=== PATIENT | male | born 1940 | race Caucasian/White ===

== ENCOUNTER 2019-01-23 07:48 | Outpatient (CLI) | payer MEDICARE ==
[2019-01-23 12:00] VITALS: BMI 24.4
[2019-01-23 13:01] LABS: Hemoglobin 15.6 g/dL (14.0-18.0); Mean Corpuscular HGB CONC 34.6 g/dL (32.0-36.0); Mean Corpuscular Hemoglobin 34.1 pg (27.0-31.0); Mean Corpuscular Volume 98.4 fL (78.0-98.0); Mean Platelet Volume 7.7 fL (7.4-10.4); Platelet Count 164 thou/uL (130-400); RBC Distribution Width 12.2 % (11.5-14.5); Red Blood Cell (RBC) Count 4.57 mill/uL (4.70-6.10); White Blood Cell (WBC) Count 7.7 thou/uL (4.8-10.8)
[2019-01-23 13:09] LABS: Bacteria/HPF None Seen HPF (None Seen); Bilirubin Negative (Negative); Blood, Urine Trace (Negative); Clarity Clear (Clear); Glucose, Urine (Dipstick) Normal (Negative); Leukocyte Negative Leu/uL (Negative); Nitrite Negative (Negative); PTT 31.6 SEC (22.9-36.1); Protein, Urine (Dipstick) Negative (Neg-Trace); Prothrombin Time 13.4 SEC (12.0-14.7); RBC/HPF 0-3 HPF (0-3); Squamous Epithelial None Seen HPF (0-3); Urobilinogen Normal mg/dL (Less than 2); WBC/HPF 0-3 HPF (0-3)
[2019-01-23 13:28] LABS: Anion Gap 14 mmol/L (10-20); BUN (Urea Nitrogen) 26 mg/dL (8.4-25.7); Calc. Creatinine Clearance 53 mL/min (70-130); Calcium 9.3 mg/dL (7.8-10.44); Carbon Dioxide 25 mmol/L (23-31); Chloride 104 mmol/L (98-107); Estimated GFR-MDRD 51; Glucose 97 mg/dL (83-110); Potassium 4.7 mmol/L (3.5-5.1); Sodium 138 mmol/L (136-145)
== END 2019-01-23 07:49 | disposition home or self-care (01) ==
LOC: LABBT 07:48
PROVIDERS: ATTEND Urology
DX: Z01.812 Encounter for preprocedural laboratory examination (principal); N52.01 Erectile dysfunction due to arterial insufficiency
CPT/HCPCS: 80048; 81001; 85027; 85610; 85730; 87081; 87086

== ENCOUNTER 2021-01-14 14:28 | Inpatient (IN) | payer MEDICARE ==
[2021-01-14 15:29] VITALS: BMI 25.2
[2021-01-14] MEDS ORDERED: HYDROcodone/Acetaminophen 5/325 mg Tablet PO PRN ×2 (16:23)
[2021-01-14] MEDS ORDERED: Clindamycin/D5W 900 MG in Premix Bag 1 BAG IVPB SCH (17:45)
[2021-01-14] MEDS ORDERED: tiZANidine HCl 4 MG TAB PO PRN (18:28)
[2021-01-14] MEDS ORDERED: Ondansetron PF 4 MG/2 ML Vial IVP PRN (18:29)
[2021-01-14] MEDS ORDERED: Dextrose 5% in Water 1,000 ML IV PRN (19:17)
[2021-01-14] MEDS ORDERED: hydrALAZINE 20 MG/ML VIAL SLOW IVP PRN (19:17)
[2021-01-14] MEDS ORDERED: traMADol HCl 50 MG TAB PO PRN (19:17)
[2021-01-14] MEDS ORDERED: Ondansetron ODT 4 MG TAB PO PRN (19:17)
[2021-01-14] MEDS ORDERED: Dextrose 50% Abboject 50 ML SYRINGE SLOW IVP PRN (19:17)
[2021-01-14] MEDS: Cyclobenzaprine 10 MG TAB PO PRN (19:43)
[2021-01-14] MEDS: Acetaminophen 325 MG TAB PO SCH (20:51)
[2021-01-14] MEDS: Ibuprofen 800 MG TAB PO SCH (20:52)
[2021-01-14] MEDS: Famotidine 20 MG TAB PO SCH (20:53)
[2021-01-14] MEDS: Finasteride 5 MG TAB PO SCH (20:53)
[2021-01-14] MEDS: Morphine 4 MG/ML VIAL SLOW IVP PRN (22:04)
[2021-01-14] MEDS: Melatonin 3 MG TAB PO SCH (22:06)
[2021-01-14] MEDS: Atorvastatin Calcium 10 MG TAB PO SCH (22:07)
[2021-01-14] MEDS: Pyridostigmine Bromide IR 60 MG TAB PO SCH (22:07)
[2021-01-14] MEDS: Carvedilol 6.25 MG TAB PO SCH (22:08)
[2021-01-14 22:41] LABS: SARS-CoV-2 PCR by NAA Not Detected (NotDetected)
[2021-01-14] MEDS ORDERED: Sodium Chloride 0.9% 1,000 ML IV SCH (23:55)
[2021-01-15] MEDS: Acetaminophen 325 MG TAB PO SCH ×4 (02:06→20:36)
[2021-01-15] MEDS: Ibuprofen 800 MG TAB PO SCH ×3 (04:44→20:37)
[2021-01-15 06:12] LABS: #Eosinphils 0.2 thou/uL (0.0-0.7); #Lymphocytes 1.1 thou/uL (1.20-3.40); #Monocytes 0.8 thou/uL (0.11-0.59); #Neutrophils 4.4 thou/uL (1.40-6.50); %Basophils 0.7 % (0.0-1.0); %Eosinophils 3.5 % (0.0-10.0); %Lymphocytes 16.3 % (21.0-51.0); %Monocytes 12.2 % (0.0-10.0); %Neutrophils 67.4 % (42.0-75.0); Hemoglobin 14.6 g/dL (14.0-18.0); Mean Corpuscular HGB CONC 34.6 g/dL (32.0-36.0); Mean Corpuscular Hemoglobin 33.4 pg (27.0-31.0); Mean Corpuscular Volume 96.5 fL (78.0-98.0); Mean Platelet Volume 7.8 fL (7.4-10.4); Platelet Count 114 thou/uL (130-400); RBC Distribution Width 12.2 % (11.5-14.5); Red Blood Cell (RBC) Count 4.38 mill/uL (4.70-6.10); White Blood Cell (WBC) Count 6.5 thou/uL (4.8-10.8)
[2021-01-15 06:26] LABS: Anion Gap 11 mmol/L (10-20); BUN (Urea Nitrogen) 28 mg/dL (8.4-25.7); Calc. Creatinine Clearance 52 mL/min (70-130); Calcium 8.3 mg/dL (7.8-10.44); Carbon Dioxide 20 mmol/L (23-31); Chloride 111 mmol/L (98-107); Glucose 114 mg/dL (83-110); Potassium 4.5 mmol/L (3.5-5.1); Sodium 137 mmol/L (136-145)
[2021-01-15 06:32] LABS: Phosphorus 3.9 mg/dL (2.3-4.7)
[2021-01-15] MEDS: Carvedilol 6.25 MG TAB PO SCH ×2 (08:02→20:39)
[2021-01-15] MEDS: Morphine 4 MG/ML VIAL SLOW IVP PRN ×2 (08:02→16:53)
[2021-01-15] MEDS ORDERED: Clindamycin/D5W 900 mg/50 ml Premix Bag ONE (09:35)
[2021-01-15] MEDS: Amlodipine 10 MG TAB PO SCH (10:01)
[2021-01-15] MEDS: DULoxetine 30 MG CAP PO SCH (10:01)
[2021-01-15] MEDS: Topiramate 25 MG TAB PO SCH ×2 (10:02→20:43)
[2021-01-15] MEDS: Lisinopril 20 MG TAB PO SCH (10:02)
[2021-01-15] MEDS: Pyridostigmine Bromide IR 60 MG TAB PO SCH ×3 (10:02→20:42)
[2021-01-15] MEDS: Famotidine 20 MG TAB PO SCH ×2 (10:02→20:40)
[2021-01-15] MEDS ORDERED: Fentanyl 100 MCG/2 ML VIAL ONE ×3 (10:09→12:00)
[2021-01-15] MEDS ORDERED: Glycopyrrolate 0.2 MG/ML 5 ML SYRINGE ONE (10:10)
[2021-01-15] MEDS ORDERED: PROPOFOL 200 MG/20 ML VIAL ONE (10:10)
[2021-01-15] MEDS ORDERED: Dexamethasone 20 MG/5 ML VIAL ONE (10:10)
[2021-01-15] MEDS ORDERED: Ondansetron PF 4 MG/2 ML Vial ONE (10:10)
[2021-01-15] MEDS ORDERED: PHENYLEPHRINE-NS 100 MCG/ML 10 ML SYRINGE ONE (10:10)
[2021-01-15] MEDS ORDERED: Lidocaine 1% PF 5 ML VIAL ONE (10:10)
[2021-01-15] MEDS ORDERED: Rocuronium Bromide 10 MG/ML (10ML VIAL) ONE (10:10)
[2021-01-15] MEDS ORDERED: ePHEDrine 50 MG/ML VIAL ONE (10:10)
[2021-01-15] MEDS ORDERED: methylPREDNISolone Sod Succ/PF 125 MG/2 ML VIAL ONE (10:59)
[2021-01-15] MEDS ORDERED: Hydrocortisone Sod Succ/PF 100 mg/2 ml Vial ONE (11:08)
[2021-01-15] MEDS ORDERED: SUGAMMADEX SODIUM 200 MG/2 ML VIAL ONE (11:11)
[2021-01-15] MEDS ORDERED: HYDROmorphone 2 MG/ML VIAL SLOW IVP PRN (11:48)
[2021-01-15] MEDS ORDERED: Ondansetron HCl/PF 4 MG/2 ML Vial IVP PRN (11:48)
[2021-01-15] MEDS ORDERED: Promethazine HCl 25 MG/ML VIAL IM PRN (11:48)
[2021-01-15] MEDS ORDERED: Promethazine HCl 25 MG/ML VIAL IVPB PRN (11:48)
[2021-01-15] MEDS: traMADol HCl 50 MG TAB PO PRN ×2 (13:44→18:54)
[2021-01-15] MEDS: Cyclobenzaprine 10 MG TAB PO PRN (15:22)
[2021-01-15] MEDS: Clindamycin/D5W 900 MG in Premix Bag 1 BAG IVPB SCH (18:54)
[2021-01-15] MEDS: Atorvastatin Calcium 10 MG TAB PO SCH (20:38)
[2021-01-15] MEDS: Finasteride 5 MG TAB PO SCH (20:42)
[2021-01-15] MEDS: Melatonin 3 MG TAB PO SCH (23:06)
[2021-01-16] MEDS: Clindamycin/D5W 900 MG in Premix Bag 1 BAG IVPB SCH (01:46)
[2021-01-16] MEDS: Acetaminophen 325 MG TAB PO SCH ×4 (03:59→20:44)
[2021-01-16] MEDS: Ibuprofen 800 MG TAB PO SCH ×3 (05:54→20:45)
[2021-01-16] MEDS: Carvedilol 6.25 MG TAB PO SCH ×2 (10:13→21:10)
[2021-01-16] MEDS: Pyridostigmine Bromide IR 60 MG TAB PO SCH ×3 (10:15→21:12)
[2021-01-16] MEDS: DULoxetine 30 MG CAP PO SCH (10:15)
[2021-01-16] MEDS: Topiramate 25 MG TAB PO SCH ×2 (10:16→20:44)
[2021-01-16 11:27] LABS: #Lymphocytes 1.3 thou/uL (1.20-3.40); #Monocytes 0.9 thou/uL (0.11-0.59); #Neutrophils 7.7 thou/uL (1.40-6.50); %Basophils 0.1 % (0.0-1.0); %Eosinophils 0.2 % (0.0-10.0); %Lymphocytes 12.8 % (21.0-51.0); %Monocytes 9.3 % (0.0-10.0); %Neutrophils 77.7 % (42.0-75.0); Hemoglobin 12.8 g/dL (14.0-18.0); Mean Corpuscular HGB CONC 35.4 g/dL (32.0-36.0); Mean Corpuscular Hemoglobin 33.9 pg (27.0-31.0); Mean Corpuscular Volume 95.6 fL (78.0-98.0); Platelet Count 158 thou/uL (130-400); Red Blood Cell (RBC) Count 3.79 mill/uL (4.70-6.10); White Blood Cell (WBC) Count 9.9 thou/uL (4.8-10.8)
[2021-01-16] MEDS: Amlodipine 10 MG TAB PO SCH (12:05)
[2021-01-16] MEDS: Lisinopril 20 MG TAB PO SCH (12:06)
[2021-01-16] MEDS: Cyclobenzaprine 10 MG TAB PO PRN (14:35)
[2021-01-16] MEDS: traMADol HCl 50 MG TAB PO PRN (16:52)
[2021-01-16] MEDS: Atorvastatin Calcium 10 MG TAB PO SCH (20:46)
[2021-01-16] MEDS: Finasteride 5 MG TAB PO SCH (20:47)
[2021-01-16] MEDS ORDERED: Famotidine 20 MG TAB PO SCH (21:00)
[2021-01-16] MEDS: Melatonin 3 MG TAB PO SCH ×2 (21:11→23:59)
[2021-01-17] MEDS: Acetaminophen 325 MG TAB PO SCH ×4 (03:45→20:15)
[2021-01-17] MEDS: Ibuprofen 800 MG TAB PO SCH (05:06)
[2021-01-17 06:03] LABS: #Eosinphils 0.1 thou/uL (0.0-0.7); #Lymphocytes 1.7 thou/uL (1.20-3.40); #Monocytes 0.9 thou/uL (0.11-0.59); %Basophils 0.3 % (0.0-1.0); %Lymphocytes 25.1 % (21.0-51.0); %Monocytes 13.3 % (0.0-10.0); %Neutrophils 59.3 % (42.0-75.0); Hemoglobin 10.5 g/dL (14.0-18.0); Mean Corpuscular HGB CONC 35.4 g/dL (32.0-36.0); Mean Platelet Volume 8.4 fL (7.4-10.4); Platelet Count 122 thou/uL (130-400); RBC Distribution Width 12.1 % (11.5-14.5); White Blood Cell (WBC) Count 6.8 thou/uL (4.8-10.8)
[2021-01-17] MEDS: Carvedilol 6.25 MG TAB PO SCH ×2 (08:05→20:23)
[2021-01-17] MEDS: DULoxetine 30 MG CAP PO SCH (08:06)
[2021-01-17] MEDS: Topiramate 25 MG TAB PO SCH ×2 (08:06→20:22)
[2021-01-17] MEDS: Lisinopril 20 MG TAB PO SCH (08:06)
[2021-01-17] MEDS: Pyridostigmine Bromide IR 60 MG TAB PO SCH ×3 (08:07→21:57)
[2021-01-17] MEDS: Amlodipine 10 MG TAB PO SCH (08:07)
[2021-01-17] MEDS: Amlodipine 5 MG TAB PO SCH (08:38)
[2021-01-17] MEDS: Pregabalin 25 MG CAP PO SCH ×2 (08:42→21:58)
[2021-01-17] MEDS: Aspirin 81 mg Enteric Coated Tablet PO SCH ×2 (08:42→20:22)
[2021-01-17] MEDS: traMADol HCl 50 MG TAB PO SCH ×2 (08:44→20:21)
[2021-01-17 08:58] LABS: Anion Gap 9 mmol/L (10-20); BUN (Urea Nitrogen) 26 mg/dL (8.4-25.7); Calc. Creatinine Clearance 62 mL/min (70-130); Calcium 7.8 mg/dL (7.8-10.44); Carbon Dioxide 24 mmol/L (23-31); Chloride 110 mmol/L (98-107); Glucose 133 mg/dL (83-110); Phosphorus 2.2 mg/dL (2.3-4.7); Potassium 3.9 mmol/L (3.5-5.1); Sodium 139 mmol/L (136-145)
[2021-01-17] MEDS ORDERED: Sodium Phosphate 30 MMOL in Sodium Chloride 0.9% 250 ML 250 ML IVPB SCH (10:00)
[2021-01-17] MEDS: Ibuprofen 200 MG TAB PO SCH ×2 (14:17→21:57)
[2021-01-17] MEDS: Cyclobenzaprine 10 MG TAB PO PRN ×2 (17:19)
[2021-01-17] MEDS ORDERED: Potassium Phosphate 15 MMOL in Sodium Chloride 0.9% 250 ML 250 ML IVPB SCH (18:00)
[2021-01-17] MEDS: Melatonin 3 MG TAB PO SCH (20:22)
[2021-01-17] MEDS: Finasteride 5 MG TAB PO SCH (20:23)
[2021-01-17] MEDS: Atorvastatin Calcium 10 MG TAB PO SCH (20:26)
[2021-01-18] MEDS: Acetaminophen 325 MG TAB PO SCH ×4 (03:30→22:00)
[2021-01-18 06:11] LABS: #Eosinphils 0.3 thou/uL (0.0-0.7); #Lymphocytes 1.7 thou/uL (1.20-3.40); #Monocytes 0.8 thou/uL (0.11-0.59); #Neutrophils 4.1 thou/uL (1.40-6.50); %Basophils 0.3 % (0.0-1.0); %Eosinophils 3.9 % (0.0-10.0); %Lymphocytes 24.9 % (21.0-51.0); %Monocytes 11.5 % (0.0-10.0); %Neutrophils 59.5 % (42.0-75.0); Hemoglobin 11.1 g/dL (14.0-18.0); Mean Corpuscular HGB CONC 35.9 g/dL (32.0-36.0); Mean Corpuscular Hemoglobin 34.5 pg (27.0-31.0); Mean Corpuscular Volume 95.9 fL (78.0-98.0); Mean Platelet Volume 8.6 fL (7.4-10.4); Platelet Count 128 thou/uL (130-400); Red Blood Cell (RBC) Count 3.23 mill/uL (4.70-6.10); White Blood Cell (WBC) Count 6.9 thou/uL (4.8-10.8)
[2021-01-18] MEDS: Ibuprofen 200 MG TAB PO SCH (07:20)
[2021-01-18] MEDS: Carvedilol 6.25 MG TAB PO SCH ×2 (08:43→21:57)
[2021-01-18] MEDS: Lisinopril 20 MG TAB PO SCH (08:43)
[2021-01-18] MEDS: Topiramate 25 MG TAB PO SCH ×2 (08:43→21:58)
[2021-01-18] MEDS: Amlodipine 10 MG TAB PO SCH (08:43)
[2021-01-18] MEDS: DULoxetine 30 MG CAP PO SCH (08:44)
[2021-01-18] MEDS: Pregabalin 25 MG CAP PO SCH ×2 (08:44→21:58)
[2021-01-18] MEDS: Aspirin 81 mg Enteric Coated Tablet PO SCH ×2 (08:44→21:56)
[2021-01-18] MEDS: Pyridostigmine Bromide IR 60 MG TAB PO SCH ×3 (08:44→21:58)
[2021-01-18] MEDS: traMADol HCl 50 MG TAB PO SCH ×3 (08:45→21:59)
[2021-01-18] MEDS: Amlodipine 5 MG TAB PO SCH (09:03)
[2021-01-18] MEDS: Cyclobenzaprine 10 MG TAB PO PRN (10:39)
[2021-01-18] MEDS: Ibuprofen 200 MG TAB PO PRN (10:39)
[2021-01-18] MEDS ORDERED: traMADol HCl 50 MG TAB PO SCH ×2 (14:00→17:00)
[2021-01-18] MEDS ORDERED: traMADol HCl 50 MG TAB PO PRN (14:59)
[2021-01-18] MEDS: Senokot S 8.6-50 MG TAB PO SCH (21:56)
[2021-01-18] MEDS: Finasteride 5 MG TAB PO SCH (21:57)
[2021-01-18] MEDS: Melatonin 3 MG TAB PO SCH (21:57)
[2021-01-18] MEDS: Atorvastatin Calcium 10 MG TAB PO SCH (21:57)
[2021-01-19] MEDS: Acetaminophen 325 MG TAB PO SCH ×4 (02:35→21:25)
[2021-01-19] MEDS: traMADol HCl 50 MG TAB PO SCH ×4 (02:35→21:24)
[2021-01-19] MEDS: Aspirin 81 mg Enteric Coated Tablet PO SCH ×2 (08:16→21:25)
[2021-01-19] MEDS: Topiramate 25 MG TAB PO SCH ×2 (08:16→21:28)
[2021-01-19] MEDS: Lisinopril 20 MG TAB PO SCH (08:16)
[2021-01-19] MEDS: Pyridostigmine Bromide IR 60 MG TAB PO SCH ×3 (08:16→21:29)
[2021-01-19] MEDS: Amlodipine 10 MG TAB PO SCH (08:17)
[2021-01-19] MEDS: DULoxetine 30 MG CAP PO SCH (08:17)
[2021-01-19] MEDS ORDERED: Bisacodyl 10 MG SUPP PR SCH (09:30)
[2021-01-19] MEDS: Pregabalin 25 MG CAP PO SCH ×2 (09:50→21:24)
[2021-01-19] MEDS: Carvedilol 6.25 MG TAB PO SCH ×2 (10:29→21:26)
[2021-01-19] MEDS: Senokot S 8.6-50 MG TAB PO SCH ×2 (13:24→21:25)
[2021-01-19] MEDS: Polyethylene Glycol 3350 17 GM Packet PO SCH (13:24)
[2021-01-19] MEDS: Ibuprofen 200 MG TAB PO PRN (18:02)
[2021-01-19] MEDS: Atorvastatin Calcium 10 MG TAB PO SCH (21:26)
[2021-01-19] MEDS: Melatonin 3 MG TAB PO SCH (21:26)
[2021-01-19] MEDS: Finasteride 5 MG TAB PO SCH (21:26)
[2021-01-20] MEDS: Acetaminophen 325 MG TAB PO SCH ×4 (04:49→20:41)
[2021-01-20] MEDS: traMADol HCl 50 MG TAB PO SCH ×4 (04:49→20:36)
[2021-01-20] MEDS: Senokot S 8.6-50 MG TAB PO SCH ×3 (09:39→20:35)
[2021-01-20] MEDS: Lisinopril 20 MG TAB PO SCH (09:39)
[2021-01-20] MEDS: Amlodipine 10 MG TAB PO SCH (09:39)
[2021-01-20] MEDS: Aspirin 81 mg Enteric Coated Tablet PO SCH ×2 (09:39→20:35)
[2021-01-20] MEDS: Topiramate 25 MG TAB PO SCH ×2 (09:40→20:36)
[2021-01-20] MEDS: DULoxetine 30 MG CAP PO SCH (09:40)
[2021-01-20] MEDS: Carvedilol 6.25 MG TAB PO SCH ×2 (09:40→20:35)
[2021-01-20] MEDS: Pregabalin 25 MG CAP PO SCH ×2 (09:40→20:41)
[2021-01-20] MEDS: Polyethylene Glycol 3350 17 GM Packet PO SCH (09:41)
[2021-01-20] MEDS: Pyridostigmine Bromide IR 60 MG TAB PO SCH ×3 (09:41→20:35)
[2021-01-20] MEDS: Ibuprofen 200 MG TAB PO PRN (16:01)
[2021-01-20] MEDS: Melatonin 3 MG TAB PO SCH (20:35)
[2021-01-20] MEDS: Finasteride 5 MG TAB PO SCH (20:36)
[2021-01-20] MEDS: Atorvastatin Calcium 10 MG TAB PO SCH (20:36)
[2021-01-21] MEDS: Acetaminophen 325 MG TAB PO SCH ×4 (02:51→21:15)
[2021-01-21] MEDS: traMADol HCl 50 MG TAB PO SCH ×4 (02:51→21:16)
[2021-01-21] MEDS: Ibuprofen 200 MG TAB PO PRN (04:55)
[2021-01-21] MEDS: Cyclobenzaprine 10 MG TAB PO PRN (08:20)
[2021-01-21] MEDS: Aspirin 81 mg Enteric Coated Tablet PO SCH ×2 (08:20→21:15)
[2021-01-21] MEDS: Pregabalin 25 MG CAP PO SCH ×2 (08:21→21:16)
[2021-01-21] MEDS: Pyridostigmine Bromide IR 60 MG TAB PO SCH ×3 (08:21→21:15)
[2021-01-21] MEDS: Carvedilol 6.25 MG TAB PO SCH ×2 (08:22→21:17)
[2021-01-21] MEDS: Amlodipine 10 MG TAB PO SCH (08:22)
[2021-01-21] MEDS: Senokot S 8.6-50 MG TAB PO SCH ×2 (08:22→21:17)
[2021-01-21] MEDS: DULoxetine 30 MG CAP PO SCH (08:23)
[2021-01-21] MEDS: Lisinopril 20 MG TAB PO SCH (08:23)
[2021-01-21] MEDS: Polyethylene Glycol 3350 17 GM Packet PO SCH (08:24)
[2021-01-21] MEDS: Topiramate 25 MG TAB PO SCH ×2 (14:36→21:15)
[2021-01-21] MEDS: Melatonin 3 MG TAB PO SCH (21:16)
[2021-01-21] MEDS: Finasteride 5 MG TAB PO SCH (21:17)
[2021-01-21] MEDS: Atorvastatin Calcium 10 MG TAB PO SCH (21:17)
[2021-01-22] MEDS: traMADol HCl 50 MG TAB PO SCH ×3 (02:08→15:06)
[2021-01-22] MEDS: Acetaminophen 325 MG TAB PO SCH ×4 (02:09→17:32)
[2021-01-22] MEDS: Carvedilol 6.25 MG TAB PO SCH (09:12)
[2021-01-22] MEDS: Amlodipine 10 MG TAB PO SCH (09:12)
[2021-01-22] MEDS: Polyethylene Glycol 3350 17 GM Packet PO SCH (09:12)
[2021-01-22] MEDS: Aspirin 81 mg Enteric Coated Tablet PO SCH (09:12)
[2021-01-22] MEDS: Pyridostigmine Bromide IR 60 MG TAB PO SCH ×2 (09:13→15:06)
[2021-01-22] MEDS: DULoxetine 30 MG CAP PO SCH (09:13)
[2021-01-22] MEDS: Senokot S 8.6-50 MG TAB PO SCH (09:13)
[2021-01-22] MEDS: Lisinopril 20 MG TAB PO SCH (09:13)
[2021-01-22] MEDS: Pregabalin 25 MG CAP PO SCH (09:13)
[2021-01-22] MEDS: Topiramate 25 MG TAB PO SCH (09:14)
[2021-01-22 12:05] LABS: SARS-CoV-2 PCR by NAA Not Detected (NotDetected)
[2021-01-22 12:11] VITALS: TEMP 97.5
[2021-01-22 16:00] VITALS: BP 113/48
== END 2021-01-22 17:30 | disposition home health service (06) | DRG 522 ==
LOC: SJJU 14:28
PROVIDERS: ADMIT Surgery; ATTEND Surgery
PROC: 0SRR01A Replacement of Right Hip Joint, Femoral Surface with Metal Synthetic Substitute, Uncemented, Open Approach (ICD-10-PCS; principal; 2021-01-15)
DX: S72.001A Fracture of unspecified part of neck of right femur, initial encounter for closed fracture (principal); N17.9 Acute kidney failure, unspecified; Z20.822 Contact with and (suspected) exposure to COVID-19; W18.30XA Fall on same level, unspecified, initial encounter; G62.9 Polyneuropathy, unspecified; G70.00 Myasthenia gravis without (acute) exacerbation; I25.10 Atherosclerotic heart disease of native coronary artery without angina pectoris; E78.5 Hyperlipidemia, unspecified; I12.9 Hypertensive chronic kidney disease with stage 1 through stage 4 chronic kidney disease, or unspecified chronic kidney disease; N18.9 Chronic kidney disease, unspecified; E83.42 Hypomagnesemia; E83.39 Other disorders of phosphorus metabolism; Z88.0 Allergy status to penicillin; Z88.8 Allergy status to other drugs, medicaments and biological substances; Z79.82 Long term (current) use of aspirin; Z79.899 Other long term (current) drug therapy; Z95.5 Presence of coronary angioplasty implant and graft; Z95.0 Presence of cardiac pacemaker; Z90.49 Acquired absence of other specified parts of digestive tract; Z87.891 Personal history of nicotine dependence
CPT/HCPCS: 36415; 72170; 80048; 83735; 84100; 85025; C1776; J1100; J1720; J2270; J2405; J2704; J2930; J3010; J3490; J7050; U0003; U0005

== ENCOUNTER 2021-11-23 12:30 | Outpatient (CLI) | payer MEDICARE | END 2021-11-23 12:31 | disposition home or self-care (01) | LOC: PET 12:30 | PROVIDERS: ATTEND Family Medicine Sports Medicine | DX: R91.1 Solitary pulmonary nodule (principal) | CPT/HCPCS: 78815; A9552 ==

== ENCOUNTER → 2021-11-26 | Day surgery (SDC) | payer MEDICARE ==
[2021-11-16 14:27] VITALS: BMI 26.7
[2021-11-26 09:33] LABS: Prothrombin Time 13.4 sec (12.0-14.7)
[2021-11-26 09:34] LABS: PTT 31.6 sec (22.9-36.1)
[2021-11-26 10:14] VITALS: BP 135/65; TEMP 96
== END | disposition home or self-care (01) ==
LOC: CT 09:04
PROVIDERS: ATTEND Family Medicine Sports Medicine
PROC: 0BBG3ZX Excision of Left Upper Lung Lobe, Percutaneous Approach, Diagnostic (ICD-10-PCS; principal; 2021-11-26)
DX: C34.12 Malignant neoplasm of upper lobe, left bronchus or lung (principal); I10 Essential (primary) hypertension; I25.2 Old myocardial infarction; I25.10 Atherosclerotic heart disease of native coronary artery without angina pectoris; E78.5 Hyperlipidemia, unspecified; N40.0 Benign prostatic hyperplasia without lower urinary tract symptoms; I35.0 Nonrheumatic aortic (valve) stenosis; N52.9 Male erectile dysfunction, unspecified; I48.0 Paroxysmal atrial fibrillation; M17.0 Bilateral primary osteoarthritis of knee; G70.00 Myasthenia gravis without (acute) exacerbation; G63 Polyneuropathy in diseases classified elsewhere; Z86.718 Personal history of other venous thrombosis and embolism; Z86.73 Personal history of transient ischemic attack (TIA), and cerebral infarction without residual deficits; Z87.891 Personal history of nicotine dependence; Z79.02 Long term (current) use of antithrombotics/antiplatelets; Z79.82 Long term (current) use of aspirin; Z79.899 Other long term (current) drug therapy; Z88.0 Allergy status to penicillin; Z88.8 Allergy status to other drugs, medicaments and biological substances; Z91.041 Radiographic dye allergy status; Z95.0 Presence of cardiac pacemaker; Z95.5 Presence of coronary angioplasty implant and graft
CPT/HCPCS: 32408; 36415; 71045; 77012; 81194; 81210; 81235; 81479; 85610; 85730; 88305; 88333; 88341; 88342; 88360; 88374

== ENCOUNTER 2024-12-18 13:01 | Outpatient (CLI) | payer OTHER | END 2024-12-18 13:02 | disposition home or self-care (01) | LOC: CT 13:01 | PROVIDERS: ATTEND Family Medicine Sports Medicine | DX: C34.12 Malignant neoplasm of upper lobe, left bronchus or lung (principal); R68.81 Early satiety; R91.8 Other nonspecific abnormal finding of lung field; I77.810 Thoracic aortic ectasia | CPT/HCPCS: 71250; 74177 ==